=== PATIENT | female | born 1950 | race Caucasian/White ===

== ENCOUNTER 2021-08-11 04:54 | Day surgery (SDC) | payer OTHER ==
[2021-08-08 14:20] VITALS: BMI 26.8
[2021-08-11 09:42] VITALS: TEMP 97.5
[2021-08-11 10:02] VITALS: PULSE 87
[2021-08-11 11:31] VITALS: BP 170/71
== END 2021-08-11 10:25 | disposition home or self-care (01) ==
LOC: JASU-ENDO 04:54
PROVIDERS: ATTEND Internal Medicine Gastroenterology
PROC: 0DBF8ZX Excision of Right Large Intestine, Via Natural or Artificial Opening Endoscopic, Diagnostic (ICD-10-PCS; 2021-08-11)
PROC: 0DBN8ZX Excision of Sigmoid Colon, Via Natural or Artificial Opening Endoscopic, Diagnostic (ICD-10-PCS; principal; 2021-08-11 10:00)
DX: Z12.11 Encounter for screening for malignant neoplasm of colon (principal); K57.30 Diverticulosis of large intestine without perforation or abscess without bleeding; D12.5 Benign neoplasm of sigmoid colon; Z86.010 Personal history of colon polyps; K64.8 Other hemorrhoids
CPT/HCPCS: 88305-TC

== ENCOUNTER 2022-11-10 19:54 | Emergency (ER) | payer OTHER ==
[2022-11-10 20:03] VITALS: BP 152/78; PULSE 95; RESP 18; TEMP 98.2; BMI 25.9
== END 2022-11-10 23:06 | disposition home or self-care (01) ==
LOC: JER 19:54
DX: I10 Essential (primary) hypertension (principal)
CPT/HCPCS: 93005; 93010; 99283-25

== ENCOUNTER 2023-06-02 15:41 | Observation (INO) | payer OTHER ==
[2023-06-02 15:48] VITALS: BMI 28.7
[2023-06-02] MEDS ORDERED: SODIUM CHLORIDE 1,000 ML IV SCH (16:30)
[2023-06-02 16:48] LABS: BASO % 0.8 % (0-2.0); EOS % 2.1 % (0-4.5); HEMATOCRIT 39.3 % (32.4-45.2); HEMOGLOBIN 13.1 GM/dL (10.7-15.3); LYMPH % 19.5 % (8-40); MCH 29.3 pg (25.7-33.7); MCHC 33.3 g/dl (32.0-36.0); MEAN CELL VOLUME 87.9 fl (80-96); MEAN PLT VOLUME 8.7 fl (7.5-11.1); MONO % 6.1 % (3.8-10.2); NEUT % 71.5 % (42.8-82.8); PLATELET COUNT 292 10^3/uL (134-434); RBC 4.47 M/mm3 (3.60-5.2); RDW 14.3 % (11.6-15.6); WHITE BLOOD COUNT 7.6 K/mm3 (4.0-10.0)
[2023-06-02] MEDS ORDERED: amLODIPine BESYLATE 10 MG TABLET (FP) PO ONE (16:58)
[2023-06-02 17:04] LABS: CHLORIDE 99 mmol/L (98-107); POTASSIUM 4.3 mmol/L (3.5-5.1); SODIUM 134 mmol/L (136-145)
[2023-06-02 17:06] LABS: ALBUMIN 2.8 g/dl (3.4-5.0); ANION GAP 7 mmol/L (4-13); CALCIUM 8.6 mg/dL (8.5-10.1); CO2 28 mmol/L (21-32)
[2023-06-02 17:08] LABS: VENOUS BASE EXCESS 0.1 mmol/L (-2-2); VENOUS O2 SATURATION 49.9 % (70-80); VENOUS PCO2 46.2 mmHg (38-52); VENOUS PH 7.366 (7.310-7.410)
[2023-06-02 17:09] LABS: BLOOD UREA NITROGEN 31.6 mg/dL (7-18)
[2023-06-02 17:10] LABS: CREATININE 1.6 mg/dL (0.55-1.3); SGOT/AST 13 U/L (15-37); SGPT/ALT 21 U/L (13-61)
[2023-06-02 17:11] LABS: ACTIVATED PTT 29.7 SECONDS (25.2-36.5); CHOLESTEROL 302 mg/dL (50-200); INR 1.03 (0.83-1.09); PROTHROMBIN TIME (PATIENT) 11.9 SEC (9.7-13.0); TOT PROT 6.3 g/dl (6.4-8.2)
[2023-06-02 17:12] LABS: LDL CHOLESTEROL (ONLY SJRH) 183 mg/dL (5-100)
[2023-06-02] MEDS ORDERED: hydrALAZINE HCL 10 MG TABLET PO ONE (17:12)
[2023-06-02 17:13] LABS: BILIRUBIN,TOTAL 0.3 mg/dL (0.2-1)
[2023-06-02 17:14] LABS: ALK PHOS 125 U/L (45-117); HDL CHOLESTEROL 53 mg/dL (40-60)
[2023-06-02] MEDS ORDERED: INSULIN REGULAR HUMAN 100 UNITS/ML *VIAL SQ ONE ×2 (17:15→17:20)
[2023-06-02 17:17] LABS: GLUCOSE,RANDOM 534 mg/dL (74-106)
[2023-06-02] MEDS ORDERED: amLODIPine BESYLATE 10 MG TABLET (FP) ONE (17:24)
[2023-06-02] MEDS ORDERED: hydrALAZINE HCL 10 MG TABLET ONE (17:49)
[2023-06-02 17:58] LABS: EPI CELLS 5 /uL (0-25.1); HYALINE CASTS 1 /uL (0-3.1); URINE APPEARANCE CLEAR; URINE BACTERIA 6 /uL (0-1359); URINE BILIRUBIN NEGATIVE (NEGATIVE); URINE COLOR YELLOW; URINE GLUCOSE (UA) 3+ (NEGATIVE); URINE KETONE NEGATIVE (NEGATIVE); URINE LEUK ESTERASE NEGATIVE (NEGATIVE); URINE NITRITE NEGATIVE (NEGATIVE); URINE PROTEIN 3+ (NEGATIVE); URINE RBC 16 /uL (0-23.9); URINE UROBILINOGEN 0.2 mg/dL (0.2-1.0); URINE WBC 6 /uL (0-25.8)
[2023-06-02] MEDS ORDERED: ACETAMINOPHEN 325 MG TABLET (FP) PO PRN (18:00)
[2023-06-02] MEDS ORDERED: ALBUTEROL SO4 HFA INHALER IH PRN (18:00)
[2023-06-02] MEDS ORDERED: LACTATED RINGERS SOLUTION 1,000 ML/1,000 ML INFUS.BAG IV SCH (18:15)
[2023-06-02] MEDS ORDERED: INSULIN (NOVOLOG) ASPART 100 UNITS/ML 10ML VIAL SQ SCH (18:15)
[2023-06-02] MEDS ORDERED: HALOPERIDOL LACTATE 5 MG/ML IM PRN (18:46)
[2023-06-02] MEDS ORDERED: levETIRAcetam 500 MG TABLET (FP) PO ONE (21:42)
[2023-06-02] MEDS ORDERED: ACETAMINOPHEN 325 MG TABLET (FP) ONE (21:43)
[2023-06-02] MEDS ORDERED: MELATONIN 5 MG TABLETS ONE (21:43)
[2023-06-02] MEDS ORDERED: ATORVASTATIN CA 40 MG TABLET (FP) ONE (21:43)
[2023-06-02] MEDS ORDERED: HEPARIN NA (PORCINE) 5,000 UNITS/ML 1ML VIAL ONE (21:44)
[2023-06-02] MEDS: INSULIN SLIDING SCALE (NOVOLOG) 1 VIAL SQ SCH (21:47)
[2023-06-02] MEDS: HEPARIN NA (PORCINE) 5,000 UNITS/ML 1ML VIAL SQ SCH (21:50)
[2023-06-02] MEDS: levETIRAcetam 500 MG TABLET (FP) PO SCH (21:52)
[2023-06-02] MEDS ORDERED: INSULIN (LEVEMIR) 100 UNITS/ML UNITS SQ SCH ×2 (22:00)
[2023-06-02] MEDS ORDERED: MELATONIN 5 MG TABLETS PO SCH (22:00)
[2023-06-02] MEDS ORDERED: ATORVASTATIN CA 40 MG TABLET (FP) PO SCH (22:00)
[2023-06-03] MEDS: INSULIN SLIDING SCALE (NOVOLOG) 1 VIAL SQ SCH ×2 (06:22→12:15)
[2023-06-03] MEDS: INSULIN (NOVOLOG) ASPART 100 UNITS/ML 10ML VIAL SQ SCH ×2 (06:24→12:14)
[2023-06-03 06:42] LABS: EOS % 4.3 % (0-4.5); HEMATOCRIT 33.5 % (32.4-45.2); HEMOGLOBIN 11.4 GM/dL (10.7-15.3); LYMPH % 29.4 % (8-40); MCH 29.9 pg (25.7-33.7); MCHC 33.9 g/dl (32.0-36.0); MEAN CELL VOLUME 88.1 fl (80-96); MEAN PLT VOLUME 8.4 fl (7.5-11.1); MONO % 6.1 % (3.8-10.2); NEUT % 59.2 % (42.8-82.8); PLATELET COUNT 252 10^3/uL (134-434); RBC 3.81 M/mm3 (3.60-5.2); RDW 14.2 % (11.6-15.6); WHITE BLOOD COUNT 6.6 K/mm3 (4.0-10.0)
[2023-06-03 07:02] LABS: POTASSIUM 3.6 mmol/L (3.5-5.1)
[2023-06-03 07:05] LABS: CALCIUM 8.2 mg/dL (8.5-10.1)
[2023-06-03 07:07] LABS: BLOOD UREA NITROGEN 23.4 mg/dL (7-18)
[2023-06-03 07:09] LABS: CREATININE 1.2 mg/dL (0.55-1.3)
[2023-06-03 09:21] VITALS: RESP 18
[2023-06-03] MEDS: levETIRAcetam 500 MG TABLET (FP) PO SCH (09:26)
[2023-06-03] MEDS: HEPARIN NA (PORCINE) 5,000 UNITS/ML 1ML VIAL SQ SCH (09:26)
[2023-06-03] MEDS ORDERED: amLODIPine BESYLATE 10 MG TABLET (FP) PO SCH (10:00)
[2023-06-03] MEDS ORDERED: PATIENT'S OWN MEDICATION (NON-FORMULARY) (Omeprazole [Omeprazole] 20 MG Tablet.Dr) PO SCH (10:00)
[2023-06-03] MEDS ORDERED: PATIENT'S OWN MEDICATION (NON-FORMULARY) (Colchicine [Colchicine] 0.6 MG Tablet) PO SCH (10:00)
[2023-06-03] MEDS ORDERED: ASPIRIN COATED 81 MG TABLET.EC PO SCH (10:00)
[2023-06-03] MEDS ORDERED: COLCHICINE 0.6 MG TAB PO SCH (10:00)
[2023-06-03] MEDS ORDERED: PANTOPRAZOLE 40 MG TABLET PO SCH (10:00)
[2023-06-03 14:53] VITALS: BP 152/70; PULSE 80; TEMP 98.3
== END 2023-06-03 15:31 | disposition home health service (06) ==
LOC: JER 15:41 → INTOOBSV 17:16 → JERBED 17:16 → J4W 06-03 00:44
PROVIDERS: ADMIT Internal Medicine; ATTEND Internal Medicine
PROC: 3E023GC Introduction of Other Therapeutic Substance into Muscle, Percutaneous Approach (ICD-10-PCS; principal; 2023-06-02)
PROC: 3E0337Z Introduction of Electrolytic and Water Balance Substance into Peripheral Vein, Percutaneous Approach (ICD-10-PCS; 2023-06-02)
DX: E11.65 Type 2 diabetes mellitus with hyperglycemia (principal); E86.0 Dehydration; R56.9 Unspecified convulsions; N17.9 Acute kidney failure, unspecified; Z79.4 Long term (current) use of insulin; Z86.73 Personal history of transient ischemic attack (TIA), and cerebral infarction without residual deficits; Z91.148 Patient's other noncompliance with medication regimen for other reason
CPT/HCPCS: 0241U-QW; 36415; 70450-TC; 71045-TC-FY; 80048; 80053; 80061; 81003; 82010; 82550; 82803; 82962; 83036; 84484; 85025; 85610; 85730; 86850; 86900; 86901; 87086; 93005; 93010; 96360; 96361; 96372; 99285-25; G0378; J1644